=== PATIENT | male | born 1955 | race Caucasian/White ===

== ENCOUNTER → 2017-01-17 | Outpatient (CLI) | payer OTHER ==
[~2017-01-17] MED LIST: ASA CHILDREN'S81 MG PO; ASPIRIN325 MG PO; COREG DPS3.125 MG PO; FEOSOL-DPS325 MG PO; HUMALOG100 UNIT/1 SQ; LASIX DPS20 MG PO; LASIX DPS40 MG PO; LEVAQUIN DPS500 MG PO; LEVEMIR100 UNIT/1 SQ; LIPITOR DPS40 MG PO; MAALOX DPS30 ML PO; NITROSTAT0.4 MG SL; NORVASC DPS10 MG PO; NOVOLOG100 UNIT/2 SQ; SURFAK DPS240 MG PO; SURFAK240 MG PO; TYLENOL DPS325 MG PO; VITAMIN D31000 UNIT PO
== END | disposition home or self-care (01) ==
LOC: RAD.S 07:49
PROC: 05PY33Z Removal of Infusion Device from Upper Vein, Percutaneous Approach (ICD-10-PCS; principal; 2017-01-17)
DX: N18.6 End stage renal disease (principal)